=== PATIENT | male | born 1980 | race Caucasian/White ===

== ENCOUNTER → 2016-08-31 | Outpatient (CLI) | payer SELFPAY ==
--- NOTE | 2016-08-31 08:54 | US ---
EXAMINATION TYPE: US MSK Left Leg, Achilles and musculature DATE OF EXAM: 08/31/2016 7:27 AM COMPARISON: NONE CLINICAL HISTORY: 36-year-old male M25.572 Ankle Pain. 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 No specific in jury. Patient states mid calf started hurting while playing basketball in February. Patient stopped sal ayden for 7 weeks. Started playing again without relief in pain. TECHNIQUE: Multiple sonographic images of the left Achilles tendon and left calf musculature. FINDINGS: The Achilles tendon is intact. Incidentally, a prominent superficial vessel is seen coursing along th e insertional Achilles tendon fibers. There is small effusion or synovitis in the retrocalcaneal burs a. Small amount of paratenon fluid is seen along the lateral aspect of the proximal Achilles near the my otendinous junction. At the site of patient's complaint at the upper third mid calf, slightly medial to midline, there is an elongated heterogeneous collection interposed between the gastrocnemius and soleus musculature lucy suring 8.6 cm long, up to 4.3 cm wide, 0.9 cm thick. This collection is composed of some well[place] fluid and some thickened possible tendon fibers. IMPRESSION: 1. Findings suggest tennis leg with an 8.6 cm long collection along the calf musculature between the gastrocnemius and soleus just medial of midline corresponding to the site of patient's complaint. The collection is composed of some fluid/hematoma and probably some thickened tendon fibers possibly rel ating to ruptured plantaris. 2. The Achilles tendon is intact.
== END | disposition home or self-care (01) ==
LOC: RADUSWWP 06:49
PROVIDERS: ATTEND Family Medicine
DX: M25.572 Pain in left ankle and joints of left foot (principal)